=== PATIENT | male | born 1975 | race Caucasian/White ===

== ENCOUNTER 2023-07-21 09:33 | Emergency (ER) | payer SELFPAY ==
[2023-07-21] MEDS: Diphtheria,Pertussis(Acell),Tetanus Vaccine 0.5 ML Syringe IM ONE (10:51)
[2023-07-21] MEDS: Tetracaine HCl/PF 0.5% 4 ML Bottle EYEBOTH ONE (10:53)
== END 2023-07-21 11:04 | disposition home or self-care (01) ==
LOC: MW.ED 09:33
DX: T15.02XA Foreign body in cornea, left eye, initial encounter (principal); Z23 Encounter for immunization; X58.XXXA Exposure to other specified factors, initial encounter
CPT/HCPCS: 65220; 90471; 90715; 99282; 99283-25; J3490